=== PATIENT | male | born 1950 | race Caucasian/White ===

== ENCOUNTER → 2020-10-16 | Outpatient (CLI) | payer OTHER ==
[~2020-10-16] MED LIST: ACTOS 30 MG TAB30 M1 PO; ADULT LOW DOSE81 MG PO; APAP500 PO; ASPIRIN EC81 M1 PO; AUGMENTIN 875875 MG PO; BYSTOLIC 5 MG5 M1 PO; CALCIUM CARBO1000 MG PO; COZAAR 50 MG TA50 M1 PO; CRESTOR20 MG PO; FERREX 150150 MG PO; FUROSEMIDE 20 M20 M1 PO; FUROSEMIDE 80 M80 M1 PO; HUMALOG100 UNIT/1 SUBQ; HYDROCODON-ACE1 EAC7 PO; LANTUS SUBQ; MOM PO; NORCO 5-325 TA1 EACH PO; POTASSIUM20 PO; SENOKOT-S1 TA1 PO; SPIRONOLACTONE25 M1 PO; UNICOMPLEX M TA1 TA1 PO; ZOLOFT25 MG PO; [UNRECOGNIZED DRUG - OTHER] TOP
== END ==
LOC: SJCVCIMAG 08:31
PROVIDERS: ATTEND Internal Medicine Cardiovascular Disease
DX: I65.23 Occlusion and stenosis of bilateral carotid arteries (principal); I08.3 Combined rheumatic disorders of mitral, aortic and tricuspid valves; J90 Pleural effusion, not elsewhere classified; I48.91 Unspecified atrial fibrillation; R94.31 Abnormal electrocardiogram [ECG] [EKG]; I45.10 Unspecified right bundle-branch block; I25.10 Atherosclerotic heart disease of native coronary artery without angina pectoris; I25.5 Ischemic cardiomyopathy; E78.00 Pure hypercholesterolemia, unspecified; E11.9 Type 2 diabetes mellitus without complications; I42.9 Cardiomyopathy, unspecified; I11.0 Hypertensive heart disease with heart failure; I50.23 Acute on chronic systolic (congestive) heart failure; E78.5 Hyperlipidemia, unspecified; Z95.1 Presence of aortocoronary bypass graft; Z90.49 Acquired absence of other specified parts of digestive tract; Z95.828 Presence of other vascular implants and grafts; Z88.8 Allergy status to other drugs, medicaments and biological substances; Z79.4 Long term (current) use of insulin; Z79.899 Other long term (current) drug therapy; Z87.891 Personal history of nicotine dependence; Z82.49 Family history of ischemic heart disease and other diseases of the circulatory system

== ENCOUNTER → 2021-01-11 | Outpatient (CLI) | payer OTHER | LOC: SJCVC 09:42 | PROVIDERS: ATTEND Internal Medicine Cardiovascular Disease | DX: R94.31 Abnormal electrocardiogram [ECG] [EKG] (principal); I49.3 Ventricular premature depolarization; I45.2 Bifascicular block; I48.91 Unspecified atrial fibrillation; E78.00 Pure hypercholesterolemia, unspecified; E11.9 Type 2 diabetes mellitus without complications; G20 Parkinson's disease; I25.10 Atherosclerotic heart disease of native coronary artery without angina pectoris; I11.0 Hypertensive heart disease with heart failure; I50.22 Chronic systolic (congestive) heart failure; Z79.82 Long term (current) use of aspirin; Z79.4 Long term (current) use of insulin; Z79.899 Other long term (current) drug therapy; Z88.1 Allergy status to other antibiotic agents; Z88.8 Allergy status to other drugs, medicaments and biological substances; Z88.0 Allergy status to penicillin ==

== ENCOUNTER → 2021-07-15 | Outpatient (CLI) | payer OTHER | LOC: SJCVC 13:29 | PROVIDERS: ATTEND Internal Medicine Cardiovascular Disease | DX: R94.31 Abnormal electrocardiogram [ECG] [EKG] (principal); I45.2 Bifascicular block; I25.10 Atherosclerotic heart disease of native coronary artery without angina pectoris; I11.0 Hypertensive heart disease with heart failure; I50.22 Chronic systolic (congestive) heart failure; I48.91 Unspecified atrial fibrillation; E78.00 Pure hypercholesterolemia, unspecified; Z86.16 Personal history of COVID-19; Z95.1 Presence of aortocoronary bypass graft; Z88.0 Allergy status to penicillin; Z88.8 Allergy status to other drugs, medicaments and biological substances; Z79.4 Long term (current) use of insulin; Z79.899 Other long term (current) drug therapy; Z87.891 Personal history of nicotine dependence ==